=== PATIENT | female | born 1980 | race Caucasian/White ===

== ENCOUNTER 2024-11-24 12:30 | Emergency (ER) | payer OTHER ==
[~2024-11-24] VITALS: Ht 154.9 cm; Wt 113.6 kg
[2024-11-24 12:36] VITALS: TEMP 98.6
[2024-11-24] MEDS ORDERED: METF-1211 PO (12:41)
[2024-11-24] MEDS: ACETAMINOPHEN 500 MG TABLET PO ONE (13:22)
[2024-11-24] MEDS: IBUPROFEN 400 MG TABLET PO ONE (13:22)
[2024-11-24] MEDS: LIDOCAINE 5% TRANSDERMAL PATCH TD ONE (13:22)
[2024-11-24] MEDS ORDERED: LIDO-57 TP (14:28)
[2024-11-24] MEDS ORDERED: METH-812 PO (14:28)
[2024-11-24 16:14] VITALS: BP 125/70; PULSE 62; RESP 18; O2SAT 98
== END 2024-11-24 16:15 | disposition home or self-care (01) ==
LOC: EMS 12:42
DX: M25.551 Pain in right hip (principal); E11.9 Type 2 diabetes mellitus without complications; Z79.899 Other long term (current) drug therapy
CPT/HCPCS: 73502; 99284

== ENCOUNTER 2024-11-29 21:52 | Emergency (ER) | payer OTHER ==
[~2024-11-29] VITALS: Ht 154.9 cm; Wt 113.6 kg
[~2024-11-29 21:52] MED LIST: LIDO-57 TP; METF-1211 PO; METH-812 PO
[2024-11-29 22:28] LABS: APPEARANCE,URINE HAZY (CLEAR); GLUCOSE, URINE (UA) >=1000 mg/dL (NEGATIVE); LEUKOCYTE ESTERASE ,URINE LARGE (NEGATIVE); NITRATE,URINE NEGATIVE (NEGATIVE); OCCULT BLOOD,URINE TRACE (NEGATIVE); SPECIFIC GRAVITIY, URINE 1.038 (1.003-1.030)
[2024-11-29 22:29] LABS: PLATELET COUNT (AUTO) 246 K/uL (150-450); RED BLOOD CELL COUNT(AUTO) 4.99 MIL/uL (4.00-5.20); RED CELL DISTRIBUTION WIDTH 15.5 % (11.5-14.5); WHITE BLOOD COUNT (AUTO) 10.8 K/uL (4.5-11.0)
[2024-11-29 22:34] LABS: CALCIUM, TOTAL 8.9 mg/dL (8.8-10.5); CREATININE 0.97 mg/dL (0.60-1.30); GLOMERULAR FILTR. RATE CALC > 60 mL/min (>60); SODIUM SERUM 134 mmol/L (136-145); UREA NITROGEN, BLOOD 9 mg/dL (7-18)
[2024-11-29 22:35] LABS: GLUCOSE,RANDOM 444 mg/dL (70-110)
[2024-11-29 22:40] LABS: ASPARTATE AMINOTRANSFERASE 18.0 U/L (15-37); TOTAL PROTEIN, SERUM 7.6 g/dL (6.4-8.2)
[2024-11-30 00:36] VITALS: BP 125/75; PULSE 72; RESP 16; TEMP 97.8; O2SAT 100
[2024-11-30] MEDS: FLUCONAZOLE 150 MG TABLET PO ONE (01:41)
[2024-11-30] MEDS: SODIUM CHLORIDE 0.9% 1,000 ML IV ONE (01:41)
[2024-11-30] MEDS: INSULIN REGULAR, HUMAN 100 UNITS/ML IVP ONE (01:42)
[2024-11-30] MEDS: POTASSIUM CHLORIDE 20 MEQ ER TABLET PO ONE (01:49)
[2024-11-30] MEDS ORDERED: FLUC150T61 PO (03:15)
[2024-11-30] MEDS ORDERED: CEPH-558 PO (03:15)
[2024-11-30] MEDS ORDERED: CLOT15CR75 TP (03:16)
[2024-11-30] MEDS: CEPHALEXIN MONOHYDRATE 500 MG CAPSULE PO ONE (03:30)
== END 2024-11-30 03:37 | disposition home or self-care (01) ==
LOC: EMS 21:52
DX: B37.31 Acute candidiasis of vulva and vagina (principal); N39.0 Urinary tract infection, site not specified; E11.65 Type 2 diabetes mellitus with hyperglycemia
CPT/HCPCS: 99284; 80048; 80076; 81001; 85025; 87086; 36415; 96374; 96361; 82962; J1815; J7030

== ENCOUNTER 2025-01-14 16:24 | Emergency (ER) | payer OTHER ==
[~2025-01-14] VITALS: Ht 152.4 cm; Wt 113.6 kg
[~2025-01-14 16:24] MED LIST changes: +CEPH-558 PO; +CLOT15CR75 TP; +FLUC150T61 PO
[2025-01-14 17:05] VITALS: BP 145/83; PULSE 71; RESP 18; TEMP 97.5; O2SAT 99
[2025-01-14] MEDS: LIDOCAINE 5% TRANSDERMAL PATCH TD ONE (19:20)
[2025-01-14 20:56] LABS: APPEARANCE,URINE TURBID (CLEAR); GLUCOSE, URINE (UA) NEGATIVE (NEGATIVE); LEUKOCYTE ESTERASE ,URINE SMALL (NEGATIVE); NITRATE,URINE NEGATIVE (NEGATIVE); OCCULT BLOOD,URINE LARGE (NEGATIVE); SPECIFIC GRAVITIY, URINE 1.033 (1.003-1.030)
[2025-01-14 21:37] LABS: SQUAMOUS EPITHELIAL CELL,UR Rare /LPF (None Seen)
[2025-01-14] MEDS ORDERED: IBUP-1492 PO (21:48)
[2025-01-14] MEDS ORDERED: LIDO-57 TP (21:48)
[2025-01-14] MEDS ORDERED: ACET-3385 PO (21:48)
== END 2025-01-14 22:03 | disposition home or self-care (01) ==
LOC: EMS 16:24
DX: S39.012A Strain of muscle, fascia and tendon of lower back, initial encounter (principal); M25.551 Pain in right hip; E11.9 Type 2 diabetes mellitus without complications; Z79.899 Other long term (current) drug therapy; X50.9XXA Other and unspecified overexertion or strenuous movements or postures, initial encounter; Y93.89 Activity, other specified; Y92.89 Other specified places as the place of occurrence of the external cause; Y99.8 Other external cause status
CPT/HCPCS: 81001; 84703; 99283